=== PATIENT | male | born 1965 | race Caucasian/White ===

== ENCOUNTER 2016-07-04 20:53 | Emergency (ER) | payer OTHER ==
[2016-07-04 21:15] VITALS: BP 146/89; PULSE 70; TEMP 97.2; BMI 27.3
--- NOTE | 2016-07-04 22:12 | PDOC ---
History of Present Illness - General Chief Complaint: Cold Symptoms Stated Complaint: DIFF BREATHING/CONGESTED Time Seen by Provider: 07/04/16 21:10 History Source: Patient Exam Limitations: No Limitations - History of Present Illness Timing/Duration: reports: other (1--2 months) Possible Cause: Yes: unknown cause Past History - Travel Traveled outside of the country in the last 30 days: No Close contact w/someone who was outside of country & ill: No - Past Medical History Allergies/Adverse Reactions: Allergies Allergy/AdvReac Type Severity Reaction Status Date / Time No Known Allergies Allergy Verified 07/04/16 21:13 Home Medications: Ambulatory Orders Naproxen [Naprosyn] 500 mg PO BID PRN #20 tablet 08/14/13 No Home Medications 0 dose .ROUTE UTDICT 08/14/13 Tramadol HCl [Ultram] 50 mg PO Q6H PRN #14 tablet 08/14/13 Pseudoephedrine HCl 60 mg PO Q6H #20 tablet 07/04/16 - Psycho/Social/Smoking Cessation Hx Anxiety: No Suicidal Ideation: No Smoking History: Never smoked Have you smoked in the past 12 months: No Number of Cigarettes Smoked Daily: 0 Information on smoking cessation initiated: No Hx Alcohol Use: No Drug/Substance Use Hx: No Respiratory Specific PMHX - Complaint Specific PMHX Bronchitis: No Pneumonia: No Review of Systems - Review of Systems Able to Perform ROS?: Yes Comments:: 07/04/16 22:07 CONSTITUTIONAL: Absent: fever, chills, diaphoresis, generalized weakness, malaise, loss of appetite HEENT: +congested Absent: rhinorrhea, nasal congestion, throat pain, throat swelling, difficulty swallowing, mouth swelling, ear pain, eye pain, visual Changes CARDIOVASCULAR: Absent: chest pain, loss of consciousness, palpitations, irregular heart rate, peripheral edema RESPIRATORY: Absent: cough, shortness of breath, dyspnea with exertion, orthopnea, wheezing, stridor, hemoptysis GASTROINTESTINAL: Absent: abdominal pain, abdominal distension, nausea, vomiting, diarrhea, constipation, melena, hematochezia Is the patient limited [place] proficient: No *Physical Exam - Vital Signs Last Vital Signs Temp Pulse Resp BP Pulse Ox 97.2 F L 70 20 146/89 98 07/04/16 21:14 07/04/16 21:14 07/04/16 21:14 07/04/16 21:14 07/04/16 21:14 - Physical Exam Comments: 07/04/16 22:08 GENERAL: Well developed, well nourished. Awake and alert. No acute distress. HEENT: No pain to sinus on percussion Normocephalic, atraumatic. PERRLA, EOMI. No conjunctival pallor. Sclera are non- icteric. Moist mucous membranes. Oropharynx is clear. NECK: Supple. Full ROM. No JVD. Carotid pulses 2+ and symmetric, without bruits. No thyromegaly. No lymphadenopathy. CARDIOVASCULAR: Regular rate and rhythm. No murmurs, rubs, or gallops. Distal pulses are 2+ and symmetric. PULMONARY: No evidence of respiratory distress. Lungs clear to auscultation bilaterally. No wheezing, rales or rhonchi. ABDOMINAL: Soft. Non-tender. Non-distended. No rebound or guarding. No organomegaly. Normoactive bowel sounds. MUSCULOSKELETAL Normal range of motion at all joints. No bony deformities or tenderness. No CVA tenderness. EXTREMITIES: No cyanosis. No clubbing. No edema. No calf tenderness. SKIN: Warm and dry. Normal capillary refill. No rashes. No jaundice. NEUROLOGICAL: Alert, awake, appropriate. Cranial nerves 2-12 intact. No deficits to light touch and temperature in face, upper extremities and lower extremities. No motor deficits in the in face, upper extremities and lower extremities. Normoreflexic in the upper and lower extremities. Normal speech. Toes are down- going bilaterally. Gait is normal without ataxia. PSYCHIATRIC: Cooperative. Good eye contact. Appropriate mood and affect. Progress Note - Progress Note Progress Note: 50-year-old male presents to the emergency department complaining of sinus congestion for approximately 1 month. Patient states he was on a 10 day course of amoxicillin 3 weeks ago. 5 days ago, he was given Levaquin 500 mg daily. Patient states he still feels sinus congestion without rhinorrhea, headache, dizziness, lightheadedness, facial pain, difficulty swallowing, chest pain or shortness of breath. Patient states he had sinusitis years ago and was told to take a nasal spray similar to afrin for 1-2 months. Patient states he experienced a rebound effect. *DC/Admit/Observation/Transfer Diagnosis at time of Disposition: Sinus congestion - Discharge Dispostion Disposition: HOME Condition at time of disposition: Improved - Prescriptions Prescriptions: Pseudoephedrine HCl 60 mg PO Q6H #20 tablet - Patient Instructions Printed Discharge Instructions: Sinusitis Additional Instructions: You have already been on 2 different antibiotics. I will not prescribe any antibiotics today but will refer you to the ENT physician/Dr. Saleem [phone]. I will give you pseudoepinephrine and it is to be taken every 6 hours only if needed. As per our discussion, pseudoepinephrine will and can cause high blood pressure and sinus rebound effect. Return back to the emergency department for severe/persistent or worsening symptoms.
[2016-07-04] MEDS ORDERED: PSEUDOEPHEDRINE HCL 60 MG TABLET PO SCH (22:15)
[2016-07-04] MEDS ORDERED: PSEUDOEPHEDRINE HCL 60 MG TABLET ONE (22:28)
== END 2016-07-04 22:34 | disposition home or self-care (01) ==
LOC: JER 20:53
DX: J01.90 Acute sinusitis, unspecified (principal)
CPT/HCPCS: 99282-25

== ENCOUNTER 2022-07-26 11:48 | Emergency (ER) | payer BC, OTHER ==
[2022-07-26 12:03] VITALS: RESP 18; BMI 23.6
[2022-07-26 13:56] LABS: BASO % 0.1 % (0-2.0); HEMOGLOBIN 14.1 GM/dL (11.7-16.9); LYMPH % 6.8 % (8-40); MCH 32.3 pg (25.7-33.7); MCHC 34.4 g/dl (32.0-35.9); MONO % 5.4 % (3.8-10.2); NEUT % 87.7 % (42.8-82.8); PLATELET COUNT 242 10^3/uL (134-434); RBC 4.36 M/mm3 (4.00-5.60); RDW 13.4 % (11.9-15.9); WHITE BLOOD COUNT 12.6 K/mm3 (4.0-10.0)
[2022-07-26 14:08] LABS: BLOOD UREA NITROGEN 22.2 mg/dL (7-18); CALCIUM 10.3 mg/dL (8.5-10.1)
[2022-07-26 14:10] LABS: ALBUMIN 3.2 g/dl (3.4-5.0)
[2022-07-26 14:12] LABS: CREATININE 0.9 mg/dL (0.55-1.3)
[2022-07-26 14:14] LABS: BILIRUBIN,TOTAL 0.4 mg/dL (0.2-1); TOT PROT 8.8 g/dl (6.4-8.2)
[2022-07-26] MEDS ORDERED: DALBAVANCIN HCL 1,500 MG in DEXTROSE 5%-WATER - 500 ML IVPB ONE (14:26)
[2022-07-26 14:45] LABS: ERYTHROCYTE SEDIMENTATION RATE 74 mm/hr (0-20)
[2022-07-26] MEDS ORDERED: DALBAVANCIN HCL 500 MG VIAL (RESTRICTED TO ID ONLY) IVPB ONE (14:50)
[2022-07-26 16:20] VITALS: BP 112/74; PULSE 66; TEMP 98
== END 2022-07-26 17:11 | disposition home or self-care (01) ==
LOC: JER 11:48
DX: M79.672 Pain in left foot (principal); Z20.822 Contact with and (suspected) exposure to COVID-19
CPT/HCPCS: 0241U-QW; 36415; 73630-TC-LT; 80053; 85025; 85651; 86140; 99284-25; J0875

== ENCOUNTER 2023-11-23 15:00 | Emergency (ER) | payer OTHER, BC ==
[2023-11-23 15:06] VITALS: BP 103/65; PULSE 67; RESP 18; TEMP 97.5; BMI 24.3
[2023-11-23] MEDS ORDERED: CEPHALEXIN MONOHYDRATE 500 MG CAPSULE (UD) ONE (15:48)
[2023-11-23] MEDS ORDERED: SULFAMETHOXAZOLE/TRIMETHOPRIM 800MG/160MG D.S. TABLET ONE (15:48)
[2023-11-23] MEDS ORDERED: ACETAMINOPHEN 325 MG TABLET (FP) ONE (15:49)
[2023-11-23] MEDS: CEPHALEXIN MONOHYDRATE 500 MG CAPSULE (UD) PO ONE (15:52)
[2023-11-23] MEDS: ACETAMINOPHEN 500 MG TABLET (FP) PO ONE (15:52)
[2023-11-23] MEDS: SULFAMETHOXAZOLE/TRIMETHOPRIM 800MG/160MG D.S. TABLET PO ONE (15:52)
[2023-11-23] MEDS ORDERED: BACITRACIN ZINC 15 GM TUBE TOPICAL OINTMENT ONE (16:08)
[2023-11-23] MEDS: BACITRACIN ZINC 15 GM TUBE TOPICAL OINTMENT TP ONE (16:10)
== END 2023-11-23 16:17 | disposition home or self-care (01) ==
LOC: JER 15:00
DX: T25.522A Corrosion of first degree of left foot, initial encounter (principal)
CPT/HCPCS: 99283-25